=== PATIENT | female | born 1995 | race Caucasian/White ===

== ENCOUNTER 2017-02-06 20:28 | Emergency (ER) | payer OTHER ==
[~2017-02-06] VITALS: Ht 152.4 cm; Wt 50.0 kg
[2017-02-06 20:30] VITALS: BP 105/62; RESP 16; TEMP 98.4; O2SAT 98
[2017-02-06] MEDS ORDERED: FLUT1INH INH (21:35)
[2017-02-06] MEDS ORDERED: KEPP10002 PO (21:35)
[2017-02-06] MEDS ORDERED: ZYRT10CA PO (21:35)
[2017-02-06] MEDS ORDERED: MONT10TA2 PO (21:35)
[2017-02-06] MEDS ORDERED: ADDE20 PO (21:35)
[2017-02-06 21:40] VITALS: PULSE 78
[2017-02-06] MEDS ORDERED: ONDANSETRON ODT 4 MG TAB PO ONE (21:45)
[2017-02-06] MEDS ORDERED: traMADol HCL 50 MG TAB PO ONE (21:45)
[2017-02-06] MEDS ORDERED: IBUPROFEN 400 MG TAB PO ONE (21:45)
--- NOTE | 2017-02-06 21:48 | PD ---
HPI Chief Complaint: Injury Time Seen by Provider: 21:38 Travel History International Travel<30 days: No Contact w/Intl Traveler<30days: No Traveled to known affect area: No History of Present Illness HPI 21-year-old female presents for evaluation of left knee pain. The patient reports that last year she sustained a significant tibial plateau fracture in the left knee requiring surgery, hardware placement. She has had intermittent left knee issue since then. She reports that 5 days ago she was performing dance practice when she felt a popping sensation in her left knee. She developed pain and swelling and bruising the left knee. She traveled here from another state 2 days ago in order to perform in a dancing competition. She has been dancing over the past 2 days and having increased pain in the left knee. Pain is an aching pain that is worse with movement. She has been using over-the -counter NSAIDs for symptom relief. She has no other complaints. PFSH Past Medical History ADD: Yes Anxiety: Yes Diminished Hearing: No Seizures: Yes Tetanus Vaccination: < 5 Years Influenza Vaccination: No ?: Not LMP: 01/30/2017 Past Surgical History Tonsillectomy: Yes Social History Alcohol Use: Yes (SOCIALLY) Tobacco Use: No Substance Use: No Allergies-Medications (Allergen,Severity, Reaction): Coded Allergies: Amoxicillin (Verified Allergy, Unknown, 02/06/17) Cefzil (Verified Allergy, Unknown, 02/06/17) Zithromax (Verified Allergy, Unknown, 02/06/17) Reported Meds & Prescriptions Reported Meds & Active Scripts Active Zofran (Ondansetron HCl) 4 Mg Tab 4 Mg PO Q6HR PRN Tramadol (Tramadol HCl) 50 Mg Tab 50 Mg PO Q6H PRN Reported Breo Ellipta Inh (Fluticasone/Vilanterol) 100-25 Mcg/Act Inh 1 Puff INH DAILY Use daily at the same time. Adderall (Amphetamine-Dextroamphetamine) 20 Mg Tab 20 Mg PO DAILY Avoid late evening doses. Space doses at least 4 to 6 hours if more than once/day dosing. Zyrtec Allergy (Cetirizine HCl) 10 Mg Cap 10 Mg PO DAILY Singulair (Montelukast Sodium) 10 Mg Tab 10 Mg PO HS Keppra (Levetiracetam) 1,000 Mg Tab 1,000 Mg PO BID Review of Systems Musculoskeletal: Positive: Pain, No: Limited ROM Skin: Positive Other (positive for bruising, soft tissue swelling) Physical Exam Narrative GENERAL: Well-developed well-nourished female in no acute distress SKIN: Warm and dry. There is ecchymosis noted to the anterior lateral left knee joint. Old surgical scar noted. CARDIOVASCULAR: Regular rate and rhythm. No murmur appreciated. RESPIRATORY: No accessory muscle use. Clear to auscultation. Breath sounds equal bilaterally. Extremities: Skin as noted above. No obvious laxity and stress examination of the left knee. The patient maintains full range of motion of the left knee. The calf is nontender. The Achilles tendon is intact and nontender. 5 out of 5 muscle strength dorsi and plantar flexion. Distal pulses are intact. Data Data Last Documented VS Vital Signs Date Time Temp Pulse Resp B/P Pulse Ox O2 Delivery O2 Flow Rate FiO2 02/06/17 21:40 78 02/06/17 21:36 16 Room Air 02/06/17 20:30 98.4 105/62 98 Orders Tramadol (Ultram) (02/06/17 21:45) Ibuprofen (Motrin) (02/06/17 21:45) Ondansetron Odt (Zofran Odt) (02/06/17 21:45) Knee, Complete (4vws) (02/06/17 ) Toe (Min 2vws) (02/06/17 ) Crutches (02/06/17 23:16) MDM Medical Decision Making Medical Screen Exam Complete: Yes Emergency Medical Condition: Yes Medical Record Reviewed: Yes Differential Diagnosis Hardware malfunction, sprain, contusion, ligamentous disruption, meniscal disruption, tibial plateau fracture Narrative Course 21-year-old female with remote history of tibial plateau fracture and the left knee with hardware in place presents with increased pain in the left knee after feeling a popping sensation during dance practice 5 days ago. Examination reveals some ecchymosis to the anterior lateral left knee joint with associated tenderness to palpation. She maintains full range of motion of the left knee and there is no obvious bony deformity. Plan is for x-ray imaging. She will be given tramadol, Zofran and ibuprofen. She does have an appointment to see her orthopedist in 1.5 weeks when she returns to [place]. X-ray imaging of the left knee is normal. Just prior to discharge the patient also reports pain in the right fifth toe when she recently fell. Examination reveals some bruising and tenderness to palpation of the proximal right fifth toe. X-ray of the right fifth toe is ordered and is negative for fracture. She is stable for discharge. Diagnosis Primary Impression: Internal derangement of left knee Additional Impression: Toe sprain Qualified Code: S93.509A - Toe sprain, initial encounter Additional Instructions: Crutches as needed. Medication as needed. Avoid strenuous activity. Ice pack to the affected area 15-20 minutes several times a day over the next few days. Follow-up with your orthopedist and return for any emergent medical conditions. Med/Other Pt SpecificInfo: Prescription(s) given Scripts Ondansetron (Zofran)4 Mg Tab4 Mg PO Q6HR PRN (NAUSEA OR VOMITING) #20 TAB Ref 0 Prov:Kennedy Ramirez MD 02/06/17 Tramadol 50 Mg Tab50 Mg PO Q6H PRN (PAIN) #20 TAB Ref 0 Prov:Kennedy Ramirez MD 02/06/17 Disposition: 01 DISCHARGE HOME Condition: Stable Moises Quigley Feb 06, 2017 21:48
--- NOTE | 2017-02-06 22:16 | RADRPT ---
EXAM DATE/TIME: 02/06/2017 22:14 [facility] COMPARISON: No previous studies available for comparison. INDICATIONS : Left knee pain, fell MEDICAL HISTORY : None. SURGICAL HISTORY : Hardware right tibia ENCOUNTER: Initial ACUITY: 3 days PAIN SCORE: 6/10 LOCATION: Left Knee FINDINGS: No definite fractures, or dislocations are identified. No definite lytic or sclerotic lesion is seen . Side plate and multiple screws traverse the proximal tibia. CONCLUSION: No definite fracture is seen for technique. KCarolyn Lucio MD on February 06, 2017 at 22:13 Board Certified Radiologist. This report was verified electronically.
[2017-02-06] MEDS ORDERED: TRAM50TA PO (22:39)
[2017-02-06] MEDS ORDERED: ZOFR4TAB PO (22:39)
--- NOTE | 2017-02-06 23:15 | RADRPT ---
EXAM DATE/TIME: 02/06/2017 22:59 [facility] COMPARISON: No previous studies available for comparison. INDICATIONS : Patient stubbed her two a couple of days ago. MEDICAL HISTORY : None. SURGICAL HISTORY : None. ENCOUNTER: Initial ACUITY: 2 days PAIN SCORE: 0/10 LOCATION: Right 5th Digit of foot FINDINGS: No definite fractures, or dislocations are identified. No definite lytic or sclerotic lesion is seen . CONCLUSION: Unremarkable study. Emely Lucio MD on February 06, 2017 at 23:13 Board Certified Radiologist. This report was verified electronically.
== END 2017-02-06 23:47 | disposition home or self-care (01) ==
LOC: NEPK 20:28
DX: M23.92 Unspecified internal derangement of left knee (principal); S93.504A Unspecified sprain of right lesser toe(s), initial encounter; X58.XXXA Exposure to other specified factors, initial encounter; Y93.41 Activity, dancing
CPT/HCPCS: 73564; 73660; 99283; E0113